=== PATIENT | female | born 1965 | race Caucasian/White ===

== ENCOUNTER 2017-06-24 06:48 | Day surgery (SDC) | payer OTHER ==
[2017-06-24] MEDS ORDERED: CEFAZOLIN 1 GM/50 ML (PMX) 50 ML IVPB (10:04)
[2017-06-24] MEDS: SOD CHLORIDE 0.9% 1,000 ML IV (10:15)
[2017-06-24] MEDS: CEFAZOLIN 1 GM/50 ML (PMX) 50 ML IVPB (10:15)
[2017-06-24] MEDS: DIPHENHYDRAMINE 50 MG INJ (10:24)
[2017-06-24] MEDS: LIDOCAINE 1%/EPI 30 ML INJ INJ (10:42)
[2017-06-24] MEDS: FENTAnyl 50 MCG/ML VIAL (10:50)
[2017-06-24] MEDS: POLYMYXIN/BACITRACIN 1L IRRIG IRR (11:00)
[2017-06-24] MEDS: HEPARIN 1000 UNITS/ML 10 ML INJ (11:05)
[2017-06-24] MEDS ORDERED: HYDROCODONE/APAP (5/325) TAB PO (11:30)
== END 2017-06-24 13:50 | disposition home or self-care (01) ==
LOC: SDS 06:48
DX: C50.912 Malignant neoplasm of unspecified site of left female breast (principal)
CPT/HCPCS: 36561; 76942